=== PATIENT | female | born 1970 | race African-American/Black ===

== ENCOUNTER 2017-12-22 01:03 | Emergency (ER) | payer OTHER ==
[2017-12-22] MEDS: HYDROcodone/APAP 10/325 1 TAB TABLET PO (01:54)
[2017-12-22] MEDS: MORPHINE SULFATE 10 MG/ML VIAL. IM (03:34)
[2017-12-22] MEDS: MORPHINE SULFATE 4 MG/ML DISP.SYRIN. IM (05:15)
== END 2017-12-22 05:22 | disposition home or self-care (01) ==
LOC: ER 01:03
DX: S83.91XA Sprain of unspecified site of right knee, initial encounter (principal); I10 Essential (primary) hypertension; G89.29 Other chronic pain; Z90.711 Acquired absence of uterus with remaining cervical stump; E66.9 Obesity, unspecified; Z68.43 Body mass index [BMI] 50.0-59.9, adult; W18.39XA Other fall on same level, initial encounter; Y93.89 Activity, other specified; Y99.8 Other external cause status; Y92.89 Other specified places as the place of occurrence of the external cause
CPT/HCPCS: 73562; 96372; 99284-25; J2270